=== PATIENT | male | born 1970 | race Hispanic/Latino ===

== ENCOUNTER 2025-03-07 12:54 | Emergency (ER) | payer OTHER ==
[~2025-03-07] VITALS: Ht 175.3 cm; Wt 95.3 kg
--- NOTE | 2025-03-07 13:02 | ERN ---
ED Note History of Present Illness Stated Complaint: LT SIDED WEAKNESS,DIZZY,FEELING HEAVY Time Seen by MD: 12:55 Dictation: PATIENT IS A 54-YEAR-OLD MALE COMING IN TODAY WITH COMPLAINTS OF NUMBNESS TINGLING TO THE LEFT ARM AND RIGHT LOWER EXTREMITY HE HAS HAD FOR SEVERAL DAYS. HE DENIES ANY CHEST PAIN BACK PAIN NO SOB. NO HEADACHE. NIH IS 0. GAIT IS STEADY TO TRIAGE ROOM. SHE STATES SHE HAS A HISTORY OF GOUT AND HE THINKS IT MAY BE HIS GOUT. HE HAS NO PRIMARY CARE DOCTOR. HE STATES I HAVE HAD THE SYMPTOMS BEFORE AN ALWAYS GO TO THE HOSPITAL AND HAVE NEVER FOLLOWED UP OUTPATIENT. Allergies: Coded Allergies: No Known Allergies (Unverified Allergy, Unknown, 03/07/25) Home Meds Active Scripts Colchicine (Colchicine) 0.6 Mg Tablet, 0.6 MG PO AD, #25 TAB TAKE ONE TABLET BY MOUTH EVERY HOUR UNTIL PAIN STOPS, YOU BEGIN TO HAVE NAUSEA VOMITING, OR YOU HAVE REACHED A TOTAL OF THREE TABLETS. Prov:MARCUS MARTINEZ RETAIL COORDINATOR 03/07/25 Past Medical History RN Note Reviewed/Agreed w/PFSH: Yes Review of System Dictation CONSTITUTIONAL: NEGATIVE EXCEPT FOR HPI HEAD/FACE: NEGATIVE EXCEPT FOR HPI EENT: NEGATIVE EXCEPT FOR HPI RESPIRATORY: NEGATIVE EXCEPT FOR HPI GASTROINTESTINAL/ABDOMINAL: NEGATIVE EXCEPT FOR HPI GENITOURINARY: NEGATIVE EXCEPT FOR HPI MUSCULOSKELETAL: NEGATIVE EXCEPT FOR HPI INTEGUMENTARY: NEGATIVE EXCEPT FOR HPI NEUROLOGICAL/PSYCH: NEGATIVE EXCEPT FOR HPI NUMBNESS TINGLING TO THE LEFT ARM AND RIGHT LOWER EXTREMITY HEMATOLOGIC/LYMPHATIC: NEGATIVE EXCEPT FOR HPI ALL SYSTEMS NEGATIVE, EXCEPT NOTED ABOVE. 13 POINT REVIEW OF SYSTEMS ASSESSED AND ALL NEGATIVE EXCEPT FOR ABOVE. Initial Vital Sign VS Vital Signs Date Time Temp Pulse Resp B/P (MAP) Pulse Ox O2 Delivery O2 Flow Rate FiO2 03/07/25 13:13 98.6 92 16 165/99 97 Room Air 0 03/07/25 13:24 21 Physical Exam Dictation VITAL SIGNS REVIEWED GENERAL APPEARANCE: ALERT, ORIENTED X 3, NO ACUTE DISTRESS, WELL DEVELOPED, NOURISHED. HEAD AND FACE: NON-TRAUMATIC. EYES: PERRL, PINK CONJUNCTIVAS, EYELID NO TRAUMA, ANTERIOR CHAMBER WITH ARCUS SENILIS. EARS: PINNAS INTACT AND NO SIGNS OF TRAUMA OR ERYTHEMA EAR CANALS CLEAR AND NO DISCHARGE TM NO ERYTHEMA NOSE: NO DISCHARGE, NO BLEEDING. OROPHARYNX: MOUTH NORMAL, TONGUE PINK, PHARYNX CLEAR,NO ERYTHEMA, TONSILS NO EXUDATES, NO ABSCESSES NOTED, MUCOUS MEMBRANE MOIST NECK: SUPPLE, NON-TENDER, NO THYROMEGALY, NO MASSES, NO JVD, NO BRUITS BREAST:DEFERRED CHEST:NO TENDERNESS, NO CREPITUS, NO PARADOXICAL MOVEMENT, NO RETRACTIONS LUNGS:CLEAR, WELL-VENTILATED, SYMMETRIC, NO RALES, NO WHEEZING, NO RHONCHI, NO STRIDOR, GOOD BREATH SOUNDS BILATERALLY HEART: REGULAR RATE, REGULAR RHYTHM, NO MURMUR, NO GALLOPS VASCULAR: NO PERIPHERAL EDEMA, ABDOMEN: SOFT, POSITIVE BOWEL SOUNDS, NONDISTENDED, NO GUARDING, NONTENDER, NO REBOUND, NO MASSES NO HEPATOMEGALY, NO SPLENOMEGALY, NO PHILLIPS'S SIGN, NO HERNIAS. RECTAL: DEFERRED GENITAL: DEFERRED NEUROLOGICAL: NORMAL SPEECH, MOTOR FUNCTION INTACT, SENSORY FUNCTION INTACT NIH IS 0 MUSCULOSKELETAL: NECK NONTENDER, FULL RANGE OF MOTION, BACK NONTENDER, FULL RANGE OF MOTION, EXTREMITIES: NONTENDER, FULL RANGE OF MOTION SKIN: COLOR PINK, DRY, NO TURGOR, NO RASH, NO LACERATIONS, NO ABRASIONS, NO CONTUSIONS. LYMPHATIC: DEFERRED Results (Laboratory/Radiology) Laboratory/Radiology Laboratory Tests Test 03/07/25 13:10 03/07/25 13:43 Sodium Level 138 mmol/L (136-145) Potassium Level 3.7 mmol/L (3.5-5.1) Chloride Level 100 mmol/L (101-111) L Carbon Dioxide Level 28 mmol/L (21-32) Blood Urea Nitrogen 14 mg/dL (7-18) Creatinine 1.4 mg/dL (0.5-1.3) H Glomerular Filtration Rate Calc 59 mL/min (>90) Random Glucose 288 mg/dL (70-105) H Uric Acid 9.8 mg/dL (2.6-7.2) H Total Calcium 9.1 mg/dL (8.5-10.1) White Blood Count 7.8 K/uL (4.8-10.8) Red Blood Count 5.13 MIL/uL (4.50-6.20) Hemoglobin 16.5 g/dL (14.0-18.0) Hematocrit 46.2 % (42-54) Mean Corpuscular Volume 90.1 fL (79-99) Mean Corpuscular Hemoglobin 32.2 pg (27.0-33.0) Mean Corpuscular Hemoglobin Concent 35.7 g/dL (32.0-36.0) Red Cell Distribution Width 13.1 % (11.0-15.5) Platelet Count 214 K/uL (130-400) Mean Platelet Volume 9.8 fL (7.5-10.5) Immature Granulocyte % (Auto) 0.3 % (0-1) Neutrophils (%) (Auto) 71.0 % (40.0-77.0) Lymphocytes (%) (Auto) 21.5 % (21.0-51.0) Monocytes (%) (Auto) 6.2 % (3.0-13.0) Eosinophils (%) (Auto) 0.6 % (0.0-8.0) Basophils (%) (Auto) 0.4 % (0.0-5.0) Neutrophils # (Auto) 5.5 K/uL (1.8-7.7) Lymphocytes # (Auto) 1.7 K/uL (1.0-4.8) Monocytes # (Auto) 0.5 K/uL (0.1-1.0) Eosinophils # (Auto) 0.05 K/uL (0.00-0.70) Basophils # (Auto) 0.03 K/uL (0.00-0.20) Absolute Immature Granulocyte (auto 0.02 K/uL (0-1) Nucleated Red Blood Cells 0.0 % (0.0-0.19) Labs Reviewed?: Yes ED Course ED Course Orders Procedure Category Date Status Time Uric Acid LAB 03/07/25 Complete 12:59 Basic Metabolic Panel LAB 03/07/25 Complete 12:59 Cbc With Differential LAB 03/07/25 Complete 13:35 Ketorolac PHA 03/07/25 Complete Tromethamine 30mg/Ml 13:56 Current Medications Medications (Trade) Dose Ordered Sig/Alan Route PRN Reason Start Time Stop Time Status Last Admin Dose Admin Ketorolac Tromethamine (toRADol) 30 mg ONCE STAT IM 03/07/25 13:56 03/07/25 13:58 DC 03/07/25 14:01 Vital Signs Date Time Temp Pulse Resp B/P (MAP) Pulse Ox O2 Delivery O2 Flow Rate FiO2 03/07/25 13:24 98.1 85 16 162/90 98 Room Air* 0 21 03/07/25 13:13 98.6 92 16 165/99 97 Room Air 0 1355/PATIENT WILL GIVEN TORADOL 30 MG IM FOR ACUTE GOUT EXACERBATION. IN ADDIT ION HE WILL BE MADE AWARE TO CONTINUE HIS DIABETIC MEDICATION FOR HIS DOCTOR AND SEE HIS DOCTOR Medical Decision Making MDM MEDICAL DECISION-MAKING BASIC LABS TO INCLUDE URIC ACID RULE OUT A GOUT ARTHR ITIS FLARE PATIENT HAS A ACUTE GOUTY ARTHRITIS WITH A URIC ACID 9.8 AND DIABETES WITH A 288 BLOOD SUGAR. DX & DISP Disposition: Discharge Departure Impression: Primary Impression: Acute gouty arthritis Additional Impressions: Uncontrolled diabetes mellitus, Dehydration Condition: Stable Scripts Colchicine (Colchicine) 0.6 Mg Tablet 0.6 MG PO AD, #25 TAB TAKE ONE TABLET BY MOUTH EVERY HOUR UNTIL PAIN STOPS, YOU BEGIN TO HAVE NAUSEA VOMITING, OR YOU HAVE REACHED A TOTAL OF THREE TABLETS. Prov: MARCUS MARTINEZ NP 03/07/25 Additional Instructions: FOLLOW-UP WITH PRIMARY CARE PROVIDER IN 1 TO 2 DAYS. TAKE MEDICATIONS DIRECTED HERE IN THE EMERGENCY ROOM. OKAY TO CONTINUE HOME MEDICATIONS UNLESS OTHERWISE DISCUSSED DURING YOUR VISIT IN THE EMERGENCY ROOM TODAY. RETURN TO YOUR NEAREST EMERGENCY ROOM IF SYMPTOMS WORSEN OR IF THERE IS NO IMPROVEMENT. CALL 911 IF YOU NEED IMMEDIATE ASSISTANCE. TAKE TYLENOL OR MOTRIN [id number] NEEDED AND IF NO CONTRAINDICATIONS ARE PRESENT. INCREASE ORAL HYDRATION. A WOUND CULTURE OR URINE CULTURE WAS ORDERED HERE IN THE EMERGENCY ROOM DEPARTMENT PLEASE FOLLOW-UP WITH PRIMARY CARE PROVIDER AND ADVISE THEM TO GET REPEAT PORTS FROM OUR FACILITY. IF YOU HAD ANY CARL WRAP/SPLINTS THAT WERE APPLIED HERE, PLEASE DO NOT REMOVE THEM UNTIL YOU SEE YOUR PRIMARY CARE OR SPECIALTY. TAKE COLCHICINE DIRECTED FOR YOUR GOUT. REDUCED INTAKE OF RED MEAT, OR ANY ORGAN FOODS. CONTINUE WITH DIABETIC MEDICATIONS AT HOME AND SEE YOUR DOCTOR NEXT 2-3 DAYS OR FOLLOW UP WITH ONE OF THE DOCTORS ON THE LIST PROVIDED YOU. Referrals: MAYELA MANRIQUE Jr., MD (PCP) Time of Disposition: 13:58 I have reviewed the case, and I agree with, Diagnosis and Plan MARCUS MARTINEZ NP Mar 07, 2025 13:02 JOHN HAY DO Mar 07, 2025 18:08
[2025-03-07 13:24] VITALS: BP 162/90; PULSE 85; RESP 16; TEMP 98.1; O2SAT 98
[2025-03-07 13:25] LABS: CREATININE 1.4 mg/dL (0.5-1.3); POTASSIUM 3.7 mmol/L (3.5-5.1)
[2025-03-07 13:28] LABS: URIC ACID 9.8 mg/dL (2.6-7.2)
[2025-03-07 13:49] LABS: BASOPHILS # (AUTO) 0.03 K/uL (0.00-0.20); BASOPHILS % (AUTO) 0.4 % (0.0-5.0); EOSINOPHILS # (AUTO) 0.05 K/uL (0.00-0.70); EOSINOPHILS % (AUTO) 0.6 % (0.0-8.0); HEMATOCRIT 46.2 % (42-54); IMMATURE GRANULOCYTE ABSOLUTE 0.02 K/uL (0-1); LYMPHOCYTES # (AUTO) 1.7 K/uL (1.0-4.8); LYMPHOCYTES % (AUTO) 21.5 % (21.0-51.0); MEAN CORPUSCULAR HEMOGLOBIN 32.2 pg (27.0-33.0); MEAN CORPUSCULAR HGB CONC 35.7 g/dL (32.0-36.0); MEAN CORPUSCULAR VOLUME 90.1 fL (79-99); MONOCYTES # (AUTO) 0.5 K/uL (0.1-1.0); MONOCYTES % (AUTO) 6.2 % (3.0-13.0); NEUTROPHILS # (AUTO) 5.5 K/uL (1.8-7.7); PLATELET COUNT (AUTO) 214 K/uL (130-400); RED BLOOD CELL COUNT(AUTO) 5.13 MIL/uL (4.50-6.20); RED CELL DISTRIBUTION WIDTH 13.1 % (11.0-15.5); WHITE BLOOD COUNT (AUTO) 7.8 K/uL (4.8-10.8)
[2025-03-07] MEDS ORDERED: COLC0.6T73 PO (14:00)
[2025-03-07] MEDS: ketOROlac 30MG VIAL (30MG/ML) IM STA (14:01)
== END 2025-03-07 14:10 | disposition home or self-care (01) ==
LOC: EDH 12:54
DX: M10.9 Gout, unspecified (principal); E11.65 Type 2 diabetes mellitus with hyperglycemia; E86.0 Dehydration; Z79.899 Other long term (current) drug therapy
CPT/HCPCS: 99283; 84550; 80048; 85025; 36415; 96372; J1885